=== PATIENT | male | born 1975 | race Caucasian/White ===

== ENCOUNTER 2025-07-15 12:00 | Inpatient (IN) | payer OTHER ==
[2025-07-15] MEDS ORDERED: POLYETHYLENE GLYCOL (HEALTHYLAX) 3350 17 GM PACKET PO PRN (12:57)
[2025-07-15] MEDS ORDERED: NALOXONE (NARCAN) HCL 4 MG/0.1 ML SPRAY NS PRN (12:57)
[2025-07-15] MEDS ORDERED: MAGNESIUM HYDROX 2400MG/30ML ORAL SUSPENSION 30 ML CUP PO PRN (12:57)
[2025-07-15] MEDS ORDERED: BENZOCAINE/MENTHOL (CHLORASEPTIC ) LOZENGE MM PRN (12:57)
[2025-07-15] MEDS ORDERED: guaiFENesin 600 MG TABLET.ER (FP) PO PRN (12:57)
[2025-07-15] MEDS ORDERED: IBUPROFEN 400 MG TABLET (FP) PO PRN (12:57)
[2025-07-15] MEDS ORDERED: MAG HYDROX/AL HYDROX/SIMETH 30 ML UNIT-DOSE CUP PO PRN (12:57)
[2025-07-15] MEDS ORDERED: P-EPHED 60MG/TRIPROLIDI 2.5MG TABLET PO PRN (12:57)
[2025-07-15] MEDS ORDERED: LOPERAMIDE HCL 2 MG CAPSULE PO PRN (12:57)
[2025-07-15] MEDS ORDERED: BENZONATATE 200 MG CAPSULE PO PRN (12:57)
[2025-07-15] MEDS ORDERED: ACETAMINOPHEN 325 MG TABLET (FP) PO PRN (12:57)
[2025-07-15] MEDS ORDERED: hydrOXYzine PAMOATE 25 MG CAPSULE (FP) PO PRN (12:57)
[2025-07-15] MEDS: AMOX TR/POT CLAV 875MG/125MG TABLETS (FP) PO SCH (17:34)
[2025-07-15] MEDS: THIAMINE 100 MG TABLET PO SCH (21:19)
[2025-07-15] MEDS: CALCIUM (OYSTER SHELL) 500 MG TABLET (FP) PO SCH (21:19)
[2025-07-15] MEDS: GABAPENTIN 100 MG CAPSULE PO SCH (21:20)
[2025-07-15] MEDS: ASPIRIN COATED 81 MG TABLET.EC PO SCH (21:20)
[2025-07-15] MEDS: SULFAMETHOXAZOLE/TRIMETHOPRIM 800MG/160MG D.S. TABLET PO SCH (21:20)
[2025-07-15] MEDS: MELATONIN 5 MG TABLETS PO SCH (21:20)
[2025-07-16] MEDS: PRENATAL VITAMINS W/ FOLIC ACID TABLET (FP) PO SCH (09:37)
[2025-07-16 11:26] LABS: MCHC 29.9 g/dl (32.3-36.5); MEAN CELL VOLUME 88.0 fl (79.0-92.2); MEAN PLT VOLUME 11.4 fl (9.4-12.4); RDW 18.9 % (12.1-15.9)
[2025-07-16 11:55] LABS: GLUCOSE,RANDOM 73.0 mg/dL (74-106)
[2025-07-16 11:56] LABS: TOT PROT 8.0 g/dl (6.4-8.2)
[2025-07-16 11:57] LABS: CO2 26.0 mmol/L (21-32)
[2025-07-16 11:58] LABS: ALK PHOS 73.0 U/L (40-150)
[2025-07-16 12:01] LABS: CREATININE 0.65 mg/dL (0.55-1.3); SGOT/AST 29.0 U/L (5-34); SGPT/ALT 24.0 U/L (0-55)
[2025-07-17] MEDS: IBUPROFEN 600 MG TABLET (FP) PO PRN (10:43)
[2025-07-17 11:49] LABS: URINE APPEARANCE CLEAR; URINE BILIRUBIN NEGATIVE (NEGATIVE); URINE COLOR YELLOW; URINE GLUCOSE (UA) NEGATIVE (NEGATIVE); URINE KETONE NEGATIVE (NEGATIVE)
[2025-07-17 11:50] LABS: URINE LEUK ESTERASE TRACE (NEGATIVE); URINE NITRITE NEGATIVE (NEGATIVE); URINE PROTEIN NEGATIVE (NEGATIVE); URINE UROBILINOGEN 0.2 mg/dL (0.2-1.0)
[2025-07-27 05:43] VITALS: RESP 16
[2025-07-28] MEDS: LIDOCAINE 5% TOPICAL PATCH TP SCH (15:15)
[2025-07-28] MEDS: TOLNAFTATE 1% CREAM 15 GM TUBE TP SCH (21:16)
[2025-07-28] MEDS: LIDOCAINE PATCH REMOVAL MC SCH (21:16)
[2025-08-12 05:45] VITALS: BP 114/78; PULSE 87; TEMP 97.3
== END 2025-08-12 08:47 | disposition home or self-care (01) | DRG 772 ==
LOC: YASAS 12:00 → Y3NR 15:09 → Y3W 07-16 09:43
PROVIDERS: ADMIT Neuromusculoskeletal Medicine & OMM; ATTEND Psychiatry & Neurology Pain Medicine
PROC: HZ42ZZZ Group Counseling for Substance Abuse Treatment, Cognitive-Behavioral (ICD-10-PCS; principal; 2025-07-15)
DX: F11.20 Opioid dependence, uncomplicated (principal); F14.10 Cocaine abuse, uncomplicated; G47.00 Insomnia, unspecified; I10 Essential (primary) hypertension; M54.50 Low back pain, unspecified; G89.29 Other chronic pain; M86.8X8 Other osteomyelitis, other site; Z87.891 Personal history of nicotine dependence; Z59.02 Unsheltered homelessness
CPT/HCPCS: 36415; 80053; 80305; 80307; 81003; 85027; 86780; 93005; 93010